=== PATIENT | male | born 1945 | race Caucasian/White ===

== ENCOUNTER 2022-04-12 22:42 | Emergency (ER) | payer OTHER | END 2022-04-13 01:04 | LOC: CSHERS 22:42 | DX: L03.116 Cellulitis of left lower limb (principal); E11.9 Type 2 diabetes mellitus without complications; I10 Essential (primary) hypertension; J44.9 Chronic obstructive pulmonary disease, unspecified; E03.9 Hypothyroidism, unspecified; Z79.4 Long term (current) use of insulin ==

== ENCOUNTER 2022-08-15 16:44 | Emergency (ER) | payer OTHER ==
[2022-08-15 18:36] LABS: SARS-CoV-2 NAA Rapid Test Not Detected (NotDetected)
[2022-08-15 19:15] LABS: #Eosinphils 0.1 10x3/uL (0.0-0.5); #Monocytes 0.5 10x3/uL (0.0-1.1); #Neutrophils 2.4 10x3/uL (1.5-8.4); %Basophils 0.4 % (0.0-2.0); %Eosinophils 2.9 % (0.0-6.0); %Lymphocytes 33.6 % (18.0-47.0); %Monocytes 10.4 % (0.0-10.0); %Neutrophils 52.5 % (40.0-75.0); Mean Corpuscular HGB CONC 31.3 g/dL (32.0-36.0); Mean Corpuscular Hemoglobin 27.9 pg (27.0-33.0); Mean Corpuscular Volume 89.1 fl (81.2-95.1); Mean Platelet Volume 8.9 fl (7.4-10.4); Platelet Count 282 10x3/uL (150-450); RBC Distribution Width 15.6 % (11.5-14.5); White Blood Cell (WBC) Count 4.5 10x3/uL (3.5-10.5)
[2022-08-15 19:19] LABS: ALT (SGPT) 17 U/L (8-55); AST (SGOT) 24 U/L (5-34); Albumin 3.8 g/dL (3.4-4.8); Alkaline Phosphatase 53 U/L (40-110); Anion Gap 12 mmol/L (10-20); BUN (Urea Nitrogen) 13 mg/dL (8.4-25.7); Bilirubin, Total 0.6 mg/dL (0.2-1.2); Calc. Creatinine Clearance 0 mL/min (70-130); Calcium 9.7 mg/dL (7.8-10.44); Carbon Dioxide 30 mmol/L (23-31); Chloride 102 mmol/L (98-107); Estimated GFR 91; Globulin 3.5 g/dL (2.4-3.5); Glucose 115 mg/dL (83-110); Potassium 3.8 mmol/L (3.5-5.1); Protein, Total 7.3 g/dL (5.8-8.1); Sodium 140 mmol/L (136-145)
== END 2022-08-15 23:37 ==
LOC: CSHERS 16:44
DX: L03.115 Cellulitis of right lower limb (principal); R60.0 Localized edema; E11.9 Type 2 diabetes mellitus without complications; I10 Essential (primary) hypertension; J44.9 Chronic obstructive pulmonary disease, unspecified; E03.9 Hypothyroidism, unspecified; I25.10 Atherosclerotic heart disease of native coronary artery without angina pectoris; N40.0 Benign prostatic hyperplasia without lower urinary tract symptoms; Z20.822 Contact with and (suspected) exposure to COVID-19; Z79.4 Long term (current) use of insulin
CPT/HCPCS: 36415; 71045; 80053; 83605; 83880; 85025; 87040; 87077; 87149; 87186; 93970; U0002

== ENCOUNTER 2022-11-02 09:50 | Emergency (ER) | payer OTHER ==
[2022-11-02 11:54] LABS: #Eosinphils 0.2 10x3/uL (0.0-0.5); #Monocytes 0.6 10x3/uL (0.0-1.1); #Neutrophils 4.4 10x3/uL (1.5-8.4); %Basophils 0.1 % (0.0-2.0); %Eosinophils 2.2 % (0.0-6.0); %Lymphocytes 27.8 % (18.0-47.0); %Monocytes 8.7 % (0.0-10.0); %Neutrophils 60.6 % (40.0-75.0); Hemoglobin 12.7 g/dL (13.5-17.5); Mean Corpuscular HGB CONC 31.6 g/dL (32.0-36.0); Mean Corpuscular Hemoglobin 27.1 pg (27.0-33.0); Mean Corpuscular Volume 85.9 fl (81.2-95.1); Mean Platelet Volume 8.6 fl (7.4-10.4); Platelet Count 316 10x3/uL (150-450); RBC Distribution Width 16.7 % (11.5-14.5); Red Blood Cell (RBC) Count 4.68 10x6/uL (4.32-5.72); White Blood Cell (WBC) Count 7.2 10x3/uL (3.5-10.5)
[2022-11-02] MEDS ORDERED: Vancomycin HCl 500 MG VIAL ONE (12:05)
[2022-11-02] MEDS ORDERED: Vancomycin 1 GM VIAL ONE (12:05)
[2022-11-02 12:11] LABS: ALT (SGPT) 12 U/L (8-55); AST (SGOT) 15 U/L (5-34); Albumin 3.3 g/dL (3.4-4.8); Alkaline Phosphatase 44 U/L (40-110); Anion Gap 13 mmol/L (10-20); BUN (Urea Nitrogen) 22 mg/dL (8.4-25.7); Bilirubin, Total 0.9 mg/dL (0.2-1.2); Calc. Creatinine Clearance 0 mL/min (70-130); Calcium 8.9 mg/dL (7.8-10.44); Carbon Dioxide 26 mmol/L (23-31); Chloride 103 mmol/L (98-107); Estimated GFR 79; Globulin 3.1 g/dL (2.4-3.5); Glucose 102 mg/dL (83-110); Magnesium 2.2 mg/dL (1.6-2.6); Potassium 4.7 mmol/L (3.5-5.1); Protein, Total 6.4 g/dL (5.8-8.1); Sodium 137 mmol/L (136-145)
[2022-11-02 13:48] LABS: SARS-CoV-2 NAA Rapid Test Not Detected (NotDetected)
== END 2022-11-02 20:13 | disposition short-term general hospital (02) ==
LOC: EEVIPCON 09:50 → CSHERS 09:50
DX: L03.114 Cellulitis of left upper limb (principal); J44.9 Chronic obstructive pulmonary disease, unspecified; E11.9 Type 2 diabetes mellitus without complications; I25.10 Atherosclerotic heart disease of native coronary artery without angina pectoris; I10 Essential (primary) hypertension; E03.9 Hypothyroidism, unspecified
CPT/HCPCS: 36415; 80053; 83605; 83735; 85025; 87040; 96365; 96366; J3370; U0002

== ENCOUNTER 2023-03-28 03:45 | Inpatient (IN) | payer OTHER ==
[2023-03-28] MEDS ORDERED: Ondansetron PF 4 MG/2 ML Vial ONE (04:43)
[2023-03-28] MEDS ORDERED: Morphine 4 MG/ML VIAL ONE (04:44)
[2023-03-28] MEDS ORDERED: Cefepime 2 GM VIAL ONE (05:12)
[2023-03-28 05:15] LABS: Bilirubin Neg (Negative); Blood, Urine 10 (Negative); Clarity Clear (Clear); Glucose, Urine (Dipstick) Normal (Negative); Ketone, Urine Negative (Negative); Leukocyte 25 (Negative); Nitrite Negative (Negative); Protein, Urine (Dipstick) 30 mg/dl (Neg-Trace); pH, Urine 6.5 (5.0-9.0)
[2023-03-28 05:19] LABS: ALT (SGPT) 11 U/L (8-55); AST (SGOT) 18 U/L (5-34); Albumin 3.2 g/dL (3.4-4.8); Alkaline Phosphatase 45 U/L (40-110); Anion Gap 14 mmol/L (10-20); BUN (Urea Nitrogen) 12 mg/dL (8.4-25.7); Bilirubin, Total 0.5 mg/dL (0.2-1.2); Calc. Creatinine Clearance 0 mL/min (70-130); Calcium 8.2 mg/dL (7.8-10.44); Carbon Dioxide 30 mmol/L (23-31); Chloride 100 mmol/L (98-107); Estimated GFR 88; Globulin 2.7 g/dL (2.4-3.5); Glucose 112 mg/dL (83-110); Potassium 4.2 mmol/L (3.5-5.1); Protein, Total 5.9 g/dL (5.8-8.1); Sodium 140 mmol/L (136-145)
[2023-03-28 05:22] LABS: RBC/HPF 0-3 HPF (0-3)
[2023-03-28 05:23] LABS: #Eosinphils 0.1 10x3/uL (0.0-0.5); #Monocytes 0.8 10x3/uL (0.0-1.1); #Neutrophils 4.7 10x3/uL (1.5-8.4); %Basophils 0.3 % (0.0-2.0); %Eosinophils 0.8 % (0.0-6.0); %Lymphocytes 28.4 % (18.0-47.0); %Monocytes 10.3 % (0.0-10.0); %Neutrophils 59.8 % (40.0-75.0); Hemoglobin 10.9 g/dL (13.5-17.5); Mean Corpuscular HGB CONC 31.4 g/dL (32.0-36.0); Mean Corpuscular Hemoglobin 26.5 pg (27.0-33.0); Mean Corpuscular Volume 84.2 fl (81.2-95.1); Mean Platelet Volume 9.7 fl (7.4-10.4); Platelet Count 233 10x3/uL (150-450); RBC Distribution Width 14.6 % (11.5-14.5); Red Blood Cell (RBC) Count 4.12 10x6/uL (4.32-5.72); White Blood Cell (WBC) Count 7.8 10x3/uL (3.5-10.5)
[2023-03-28 05:23] LABS: Bacteria/HPF Rare-Few HPF (None Seen); Squamous Epithelial 0-3 HPF (0-3); WBC/HPF 0-3 HPF (0-3)
[2023-03-28] MEDS ORDERED: Vancomycin 1 GM VIAL ONE (05:50)
[2023-03-28 06:02] LABS: SARS-CoV-2 NAA Rapid Test Not Detected (NotDetected)
[2023-03-28] MEDS ORDERED: Dextrose 50% Abboject 50 ML SYRINGE SLOW IVP PRN (08:18)
[2023-03-28] MEDS ORDERED: HumaLOG 300 UNITS/3 ML VIAL SC PRN (08:18)
[2023-03-28] MEDS ORDERED: Dextrose 5% in Water 1,000 ML IV PRN (08:18)
[2023-03-28] MEDS: Nystatin/Triamcinolone Cream 15 GM TUBE TOP SCH ×2 (09:00→22:01)
[2023-03-28] MEDS: cefTRIAXone\\ROCEPHIN 1 GM in Sodium Chloride 0.9% 100 ML IVPB SCH (09:00)
[2023-03-28] MEDS: Furosemide 20 MG TAB PO SCH ×2 (09:00→16:50)
[2023-03-28] MEDS: Lisinopril 5 MG TAB PO SCH (09:00)
[2023-03-28] MEDS: Aspirin 81 mg Enteric Coated Tablet PO SCH (09:00)
[2023-03-28] MEDS ORDERED: Aspirin Chewable 81 MG TAB ONE (09:10)
[2023-03-28] MEDS ORDERED: Furosemide 40 MG TAB ONE ×2 (09:11→16:49)
[2023-03-28] MEDS ORDERED: Lisinopril 10 MG TAB ONE (09:11)
[2023-03-28] MEDS ORDERED: cefTRIAXone (ROCEPHIN) 1 GM VIAL ONE (09:12)
[2023-03-28] MEDS: Carvedilol 3.125 MG TAB PO SCH (19:58)
[2023-03-28 20:12] VITALS: BMI 24.1
[2023-03-28] MEDS: Terazosin HCl 1 MG CAP PO SCH (21:40)
[2023-03-28] MEDS: Atorvastatin Calcium 40 MG TAB PO SCH (21:40)
[2023-03-28] MEDS: Mometasone 200 MCG/PUFF (1 INHALER) INH SCH (22:17)
[2023-03-29] MEDS: Levothyroxine Sodium 50 MCG TAB PO SCH (05:59)
[2023-03-29] MEDS: Mometasone 200 MCG/PUFF (1 INHALER) INH SCH ×2 (07:40→20:23)
[2023-03-29] MEDS: Ventolin HFA Inhaler 60 PUFF INHALER INH PRN ×2 (07:40→12:35)
[2023-03-29] MEDS: Furosemide 20 MG TAB PO SCH ×2 (08:13→16:37)
[2023-03-29] MEDS: Lisinopril 5 MG TAB PO SCH (08:13)
[2023-03-29] MEDS: Aspirin 81 mg Enteric Coated Tablet PO SCH (08:13)
[2023-03-29] MEDS: Carvedilol 3.125 MG TAB PO SCH ×2 (08:13→18:02)
[2023-03-29] MEDS: cefTRIAXone\\ROCEPHIN 1 GM in Sodium Chloride 0.9% 100 ML IVPB SCH (08:20)
[2023-03-29] MEDS: Nystatin/Triamcinolone Cream 15 GM TUBE TOP SCH (16:39)
[2023-03-29] MEDS: Ipratropium/Albuterol 3 ML NEB NEB PRN ×2 (17:50→20:24)
[2023-03-29] MEDS: Atorvastatin Calcium 40 MG TAB PO SCH (20:56)
[2023-03-29] MEDS: Nystatin Cream 15 GM TUBE TOP SCH (20:56)
[2023-03-29] MEDS: Terazosin HCl 1 MG CAP PO SCH (20:56)
[2023-03-30] MEDS: Levothyroxine Sodium 50 MCG TAB PO SCH (06:45)
[2023-03-30] MEDS: Mometasone 200 MCG/PUFF (1 INHALER) INH SCH (07:15)
[2023-03-30] MEDS: Carvedilol 3.125 MG TAB PO SCH (10:43)
[2023-03-30] MEDS: Aspirin 81 mg Enteric Coated Tablet PO SCH (10:43)
[2023-03-30] MEDS: Lisinopril 5 MG TAB PO SCH (10:43)
[2023-03-30] MEDS: Furosemide 20 MG TAB PO SCH ×2 (10:48→16:15)
[2023-03-30] MEDS: cefTRIAXone\\ROCEPHIN 1 GM in Sodium Chloride 0.9% 100 ML IVPB SCH (10:59)
[2023-03-30] MEDS: Nystatin Cream 15 GM TUBE TOP SCH (11:14)
[2023-03-30 18:11] VITALS: BP 158/78; TEMP 98.7
== END 2023-03-30 18:00 | DRG 728 ==
LOC: CSHERS 03:45 → INTOOBSV 13:51 → EEVIPCON 13:51 → CSHERHOLD 13:51 → CSHTELE 15:54 → OBSVTOIN 03-29 13:56
PROVIDERS: ADMIT Internal Medicine; ATTEND Family Medicine
DX: N48.22 Cellulitis of corpus cavernosum and penis (principal); T83.028A Displacement of other urinary catheter, initial encounter; M79.3 Panniculitis, unspecified; L30.4 Erythema intertrigo; J44.9 Chronic obstructive pulmonary disease, unspecified; I10 Essential (primary) hypertension; F17.210 Nicotine dependence, cigarettes, uncomplicated; E11.9 Type 2 diabetes mellitus without complications; E78.5 Hyperlipidemia, unspecified; Y83.8 Other surgical procedures as the cause of abnormal reaction of the patient, or of later complication, without mention of misadventure at the time of the procedure; R33.8 Other retention of urine; N40.1 Benign prostatic hyperplasia with lower urinary tract symptoms; M19.90 Unspecified osteoarthritis, unspecified site; Z20.822 Contact with and (suspected) exposure to COVID-19; E03.9 Hypothyroidism, unspecified; Z90.89 Acquired absence of other organs; Z95.810 Presence of automatic (implantable) cardiac defibrillator; Z79.82 Long term (current) use of aspirin; Z79.4 Long term (current) use of insulin; Z79.890 Hormone replacement therapy; I25.2 Old myocardial infarction; Z82.49 Family history of ischemic heart disease and other diseases of the circulatory system; Z79.899 Other long term (current) drug therapy
CPT/HCPCS: 36415; 36416; 80053; 81003; 81015; 83605; 85025; 86140; 87040; 87086; 94640; 94664; 94760; 94762; 96365; 96366; 96367; 96372; 96375; 96376; G0378; J0692; J0696; J1650; J2270; J2405; J3370; J3490; J7620; U0002